=== PATIENT | male | born 1975 | race African-American/Black ===

== ENCOUNTER 2016-09-25 19:25 | Emergency (ER) | payer SELFPAY ==
[2016-09-25] MEDS ORDERED: cefTRIAXone 250 MG VIAL IM STA (20:43)
[2016-09-25] MEDS ORDERED: ONDANSETRON ODT 4 MG TABLET TL STA (20:43)
[2016-09-25] MEDS ORDERED: AZITHROMYCIN 250 MG TABLET PO STA (20:43)
[2016-09-25] MEDS ORDERED: metroNIDAZOLE 250 MG TABLET PO STA (20:43)
[2016-09-25] MEDS ORDERED: AZITHROMYCIN 250 MG TABLET PO ONE (20:49)
[2016-09-25] MEDS ORDERED: ONDANSETRON ODT 4 MG TABLET ONE (20:50)
[2016-09-25] MEDS ORDERED: cefTRIAXone 250 MG VIAL ONE (20:50)
[2016-09-25] MEDS ORDERED: LIDOCAINE-MPF 1% 5 ML VIAL ONE (20:50)
[2016-09-25] MEDS ORDERED: metroNIDAZOLE 250 MG TABLET PO ONE (20:50)
== END 2016-09-25 21:25 | disposition home or self-care (01) ==
DX: A64 Unspecified sexually transmitted disease (principal)
CPT/HCPCS: 81001; 87086; 87491; 87591; 96372; 99283; A9270; Q0162